=== PATIENT | female | born 1940 | race Caucasian/White ===

== ENCOUNTER → 2018-07-22 | Outpatient (CLI) | payer OTHER ==
[~2018-07-22] MED LIST: ATORVASTATIN CA20 MG; AVAPRO150 MG; DIAZIDE; ISOPTIN SR120 MG; NEURONTIN600 MG; PRILOSEC20 MG; VERAPAMIL ER180 MG
== END | disposition home or self-care (01) ==
LOC: TOM 11:57
DX: N13.30 Unspecified hydronephrosis (principal); R31.29 Other microscopic hematuria
CPT/HCPCS: 71250; 74178; Q9965

== ENCOUNTER 2019-05-26 10:36 | Outpatient (CLI) | payer OTHER | END 2019-05-26 15:00 | disposition home or self-care (01) | LOC: TOM 10:36 | DX: N28.1 Cyst of kidney, acquired (principal) ==

== ENCOUNTER 2019-08-17 09:09 | Outpatient (CLI) | payer OTHER | END 2019-08-17 09:11 | disposition home or self-care (01) | LOC: RX STUDY 09:09 | DX: R13.19 Other dysphagia (principal) ==

== ENCOUNTER → 2019-11-25 | Outpatient (CLI) | payer OTHER | END | disposition home or self-care (01) | LOC: RAD 11:25 | DX: M79.632 Pain in left forearm (principal) ==

== ENCOUNTER 2021-05-22 14:04 | Emergency (ER) | payer OTHER ==
[~2021-05-22] VITALS: Ht 152.4 cm; Wt 62.6 kg
[2021-05-22] MEDS ORDERED: ATACAND16 MG (15:26)
[2021-05-22] MEDS ORDERED: DILTIAZEM ER120 M2 (15:27)
[2021-05-22] MEDS ORDERED: NEURONTIN300 MG PO (18:38)
[2021-05-23] MEDS ORDERED: FENOFIBRATE134 MG PO (07:31)
[2021-05-23] MEDS ORDERED: LASIX20 MG PO (07:31)
[2021-05-23] MEDS ORDERED: SKELAXIN800 MG PO (12:25)
== END 2021-05-22 18:44 | disposition home or self-care (01) ==
LOC: ER 14:04
DX: R60.0 Localized edema (principal)

== ENCOUNTER 2021-05-23 07:21 | Emergency (ER) | payer OTHER ==
[~2021-05-23] VITALS: Ht 152.4 cm; Wt 61.2 kg
[~2021-05-23 07:21] MED LIST changes: +ATACAND16 MG; +DILTIAZEM ER120 M2; +NEURONTIN300 MG PO
[2021-05-23] MEDS ORDERED: LASIX20 MG PO (07:31)
[2021-05-23] MEDS ORDERED: FENOFIBRATE134 MG PO (07:31)
[2021-05-23] MEDS ORDERED: SKELAXIN800 MG PO (12:25)
== END 2021-05-23 14:25 | disposition home or self-care (01) ==
LOC: ER 07:21
DX: R25.2 Cramp and spasm (principal); I87.2 Venous insufficiency (chronic) (peripheral); M79.605 Pain in left leg; M79.604 Pain in right leg